=== PATIENT | male | born 1950 | race Caucasian/White ===

== ENCOUNTER 2021-10-08 18:22 | Inpatient (IN) | payer MEDICARE ==
[~2021-10-08] VITALS: Ht 182.9 cm; Wt 79.5 kg
[~2021-10-08 18:22] MED LIST: ACET-73 PO; CHOL10005 PO; FERR325T6 PO; HYDR10SY16 PO; IPRA4AER IH; LISI40TA13 PO; OMEP40CA21 PO; SIMV-49 PO; VITA1TAB20 PO
[2021-10-08] MEDS ORDERED: methylPREDNISolone SOD SUCC 125 MG/2 ML VIAL IV ONE (18:45)
[2021-10-08] MEDS ORDERED: ALBUTEROL SULFATE 2.5 MG/3 ML NEBU NEB ONE (18:45)
[2021-10-08] MEDS ORDERED: ACETAMINOPHEN ES 500 MG TABLET PO ONE (18:45)
[2021-10-08] MEDS ORDERED: IPRATROPIUM BROMIDE 0.5 MG/2.5 ML NEBU NEB ONE (18:45)
[2021-10-08] MEDS ORDERED: CEFTRIAXONE 1 G in IV DEXTROSE 5% 50 ML IV ONE (18:45)
[2021-10-08] MEDS ORDERED: TIOT18CA3 INH (18:55)
[2021-10-08] MEDS ORDERED: GABA600T12 PO (18:55)
[2021-10-08] MEDS ORDERED: AMLO10TA59 PO (18:55)
[2021-10-08] MEDS ORDERED: ATOR40TA PO (18:55)
[2021-10-08] MEDS ORDERED: FLUP25VI4 IJ (18:55)
[2021-10-08] MEDS ORDERED: OLAN15TA3 PO (18:55)
[2021-10-08] MEDS ORDERED: BENZ1TAB7 PO (18:55)
[2021-10-08] MEDS ORDERED: OMEP20CA15 PO (18:55)
[2021-10-08] MEDS ORDERED: FLUT1BLS4 IH (18:55)
[2021-10-08] MEDS ORDERED: MONT10TA22 PO (18:55)
[2021-10-08] MEDS ORDERED: CHOLECALCIFEROL PO (18:55)
[2021-10-08] MEDS ORDERED: METF-440 PO (18:55)
[2021-10-08] MEDS ORDERED: ALBU18HF2 INH (18:55)
[2021-10-08] MEDS ORDERED: DOCU250C14 PO (18:55)
[2021-10-08] MEDS ORDERED: TAMS-3 PO (18:55)
[2021-10-08] MEDS ORDERED: ACETAMINOPHEN ES 500 MG TABLET ONE (18:59)
[2021-10-08] MEDS ORDERED: methylPREDNISolone SOD SUCC 125 MG/2 ML VIAL ONE (18:59)
[2021-10-08 19:01] LABS: ABG BASE EXCESS 1.1 mmol/L; ABG HCO3 25.3 mmol/L; ABG PCO2 38.8 mmHg (35.0-45.0); ABG PH 7.432 (7.350-7.450); ABG PO2 82.2 mmHg (75.0-100.0); ABG SITE LEFT BRACHIAL; ABG TOTAL HEMOGLOBIN 14.3 G/dL (13.5-18.0); COHb 4.2 % (0.5-1.5); MetHb 0.2 % (0.0-1.5); O2Hb 92.5 % (94.0-97.0); VENT MODE Nasal Cannula
[2021-10-08] MEDS ORDERED: ALBUTEROL SULFATE 2.5 MG/3 ML NEBU ONE (19:14)
[2021-10-08] MEDS ORDERED: IPRATROPIUM BROMIDE 0.5 MG/2.5 ML NEBU ONE (19:15)
[2021-10-08 19:23] LABS: MEAN CORPUSCULAR VOLUME 87.5 fL (73.0-96.2); PLATELET COUNT (AUTO) 255 K/uL (152-348)
[2021-10-08] MEDS ORDERED: levoFLOXacin 750 MG/D5W 150 ML PIGGYBACK IV ONE (19:30)
--- NOTE | 2021-10-08 19:32 | NUR ---
pt a/o denies pain or sob. covid and rapid step performed. pt with breathing treatment in progress.
[2021-10-08 19:39] LABS: CREATININE 0.9 mg/dL (0.6-1.3); POTASSIUM 3.5 mmol/L (3.5-5.1)
[2021-10-08 19:44] LABS: BILIRUBIN,DIRECT 0.3 mg/dL (0.0-0.2); BILIRUBIN,TOTAL 0.9 mg/dL (0.2-1.0); TOTAL PROTEIN, SERUM 7.4 g/dL (6.4-8.2)
[2021-10-08] MEDS ORDERED: IV NORMAL SALINE 1000 ML BAG IV ONE (19:45)
[2021-10-08] MEDS ORDERED: levoFLOXacin 750MG/D5W 150 ML IV ONE (19:54)
[2021-10-08] MEDS ORDERED: CEFTRIAXONE /D5W 50ML IVPB **ER PYXIS IV ONE (19:54)
--- NOTE | 2021-10-08 20:24 | NUR ---
call to [facility] consultant.
--- NOTE | 2021-10-08 20:27 | NUR ---
Dr. Arellano to call back [facility] steam pan sponger doctor.
[2021-10-08] MEDS ORDERED: IPRATROPIUM BROMIDE 0.5 MG/2.5 ML NEBU NEB PRN (21:00)
[2021-10-08] MEDS ORDERED: Z GUARD REMEDY PASTE 57 GM TUBE TOP PRN (21:00)
[2021-10-08] MEDS ORDERED: ALBUTEROL SULFATE 2.5 MG/3 ML NEBU NEB PRN (21:00)
[2021-10-08] MEDS ORDERED: MAGNESIUM HYDROXIDE 30 ML LIQUID UDC PO PRN (21:00)
[2021-10-08] MEDS ORDERED: ONDANSETRON 4 MG/2 ML VIAL IV PRN (21:00)
[2021-10-08] MEDS: ENOXAPARIN SODIUM 40 MG/0.4 ML DISP.SYRIN SQ SCH (21:00)
[2021-10-08] MEDS ORDERED: DEXTROSE 50% 50 ML DISP.SYRIN IV PRN (21:15)
--- NOTE | 2021-10-08 21:55 | NUR ---
called report to Mayra KRUEGER
--- NOTE | 2021-10-08 22:24 | NUR ---
pt transferred to room 304 via [facility] with all belongings. Mayra KRUEGER in room to accept pt.
--- NOTE | 2021-10-08 22:25 | NUR ---
Received pt from er via [facility]. Under the care of Dr. Espinosa .Dx: Sepsis. Pt in no acute distress. Pt on 3l nasal cannula. Belonging list done. intermediate assessment done.Pt observed to have sacral redness. Pt refused to answer most of of the questions on admission. Admission process and care plan initiated. Safety and comfort provided. Will continue to monitor.
[2021-10-08 22:42] VITALS: BP 113/69
[2021-10-09] MEDS: IV NS 1000 ML 1,000 ML IV PRN ×2 (00:19→15:48)
[2021-10-09 04:30] VITALS: BP 123/77
[2021-10-09 05:09] LABS: *BILIRUBIN,URIN NEGATIVE (NEGATIVE); *COLOR,URINE YELLOW (YELLOW); *KETONES,URINE NEGATIVE (NEGATIVE); LEUKOCYTE ESTERASE ,URINE 2+ (NEGATIVE); NITRITE, URINE NEGATIVE (NEGATIVE); UGLUCOSE NEGATIVE (NEGATIVE)
[2021-10-09 05:13] LABS: *BLOOD, URINE TRACE (NEGATIVE)
[2021-10-09 05:14] LABS: *CLARITY,URINE HAZY (CLEAR)
[2021-10-09 05:17] LABS: BACTERIA,URINE FEW /HPF (NONE SEEN); SQUAMOUS EPITHELIAL CELL,UR MODERATE /HPF (NONE SEEN); WBC,URINE 20-50 /HPF (0-3)
--- NOTE | 2021-10-09 05:58 | NUR ---
Pt slept comfortably. Pt in sinus rhythm. Pt in no acute distress. Pt refused his Lovenox medication. Pt vital signs within normal limit. Pt on 3l nasal cannula.All needs are met.Safety and comfort provided. Will endorse to incoming nurse for continuity of care.
[2021-10-09] MEDS: methylPREDNISolone SOD SUCC 40 MG/ML VIAL IV SCH ×3 (06:09→21:47)
[2021-10-09] MEDS: PANTOPRAZOLE SODIUM 40 MG TABLET.DR PO SCH (06:09)
[2021-10-09 06:29] LABS: HEMATOCRIT 38.5 % (36.7-47.1); MEAN CORPUSCULAR HEMOGLOBIN 29.9 uug (23.8-33.4); MEAN CORPUSCULAR VOLUME 87.9 fL (73.0-96.2); PLATELET COUNT (AUTO) 253 K/uL (152-348)
[2021-10-09] MEDS: BLOOD SUGAR DIAGNOSTIC 1 EACH STRIP VI SCH ×4 (06:43→20:12)
[2021-10-09 07:00] LABS: BILIRUBIN,TOTAL 0.5 mg/dL (0.2-1.0); CREATININE 0.6 mg/dL (0.6-1.3); MAGNESIUM 2.3 mg/dL (1.8-2.4); POTASSIUM 4.1 mmol/L (3.5-5.1); TOTAL PROTEIN, SERUM 6.3 g/dL (6.4-8.2)
--- NOTE | 2021-10-09 08:02 | NUR ---
Received Pt resting in bed, awake alert oriented x4 on tele sinus rhythm. Pt in no acute distress with episodes of cough on and off. Pt vital signs within normal limit, on 3 L 02 via nasal cannula. LAC#18G intact.All needs are met.Safety and comfort provided. Will continue to monitor closely.
[2021-10-09] MEDS: INSULIN REGULAR, HUMAN 300 UNIT/3 ML VIAL SQ PRN ×4 (08:13→21:34)
[2021-10-09] MEDS: NICOTINE 14 MG/24HR PATCH TD SCH (08:14)
[2021-10-09] MEDS: MONTELUKAST SODIUM 10 MG TABLET PO SCH (08:14)
[2021-10-09] MEDS: DOCUSATE SODIUM 250 MG CAPSULE PO SCH ×2 (08:14→16:58)
[2021-10-09] MEDS ORDERED: TAMSULOSIN HCL 0.4 MG CAP.SR.24H PO SCH (09:00)
[2021-10-09 11:45] VITALS: BP 120/74
[2021-10-09] MEDS: IPRATROPIUM BROMIDE 0.5 MG/2.5 ML NEBU NEB SCH ×2 (13:21→20:54)
[2021-10-09] MEDS: ALBUTEROL SULFATE 2.5 MG/3 ML NEBU NEB SCH ×2 (13:21→20:54)
[2021-10-09] MEDS: ACETAMINOPHEN 325 MG TABLET PO PRN (14:00)
[2021-10-09 16:00] VITALS: BP 113/68
[2021-10-09] MEDS: GLUCERNA SHAKE 237 ML CAN PO SCH (17:01)
[2021-10-09] MEDS: ATORVASTATIN 40 MG TABLET PO SCH (17:30)
[2021-10-09 20:00] VITALS: BP 108/75
[2021-10-09] MEDS ORDERED: levoFLOXacin 750MG/D5W 750 MG in PREMIXED 1 EACH IV SCH (20:00)
[2021-10-09] MEDS: CEFTRIAXONE 1 G in IV DEXTROSE 5% 50 ML IV SCH (20:02)
[2021-10-09] MEDS: ENOXAPARIN SODIUM 40 MG/0.4 ML DISP.SYRIN SQ SCH (20:09)
[2021-10-10] VITALS: BP 110/70
[2021-10-10 04:00] VITALS: BP 122/83
[2021-10-10] MEDS: PANTOPRAZOLE SODIUM 40 MG TABLET.DR PO SCH (06:09)
[2021-10-10] MEDS: methylPREDNISolone SOD SUCC 40 MG/ML VIAL IV SCH ×2 (06:09→20:05)
[2021-10-10] MEDS: BLOOD SUGAR DIAGNOSTIC 1 EACH STRIP VI SCH ×4 (06:10→20:20)
[2021-10-10 06:52] LABS: HEMATOCRIT 35.8 % (36.7-47.1); MEAN CORPUSCULAR HEMOGLOBIN 30.1 uug (23.8-33.4); MEAN CORPUSCULAR VOLUME 88.7 fL (73.0-96.2); PLATELET COUNT (AUTO) 275 K/uL (152-348)
[2021-10-10 07:02] LABS: CREATININE 0.6 mg/dL (0.6-1.3); MAGNESIUM 2.3 mg/dL (1.8-2.4); PHOSPHOROUS 1.8 mg/dL (2.5-4.9); POTASSIUM 4.5 mmol/L (3.5-5.1)
--- NOTE | 2021-10-10 07:21 | NUR ---
Pt rested well in between care; no acute distress; repositioned for comfort; assisted with needs, incontince care done safety maintained; continue to monitor; continue plan of care
[2021-10-10] MEDS: IPRATROPIUM BROMIDE 0.5 MG/2.5 ML NEBU NEB SCH ×3 (07:49→19:09)
[2021-10-10] MEDS: ALBUTEROL SULFATE 2.5 MG/3 ML NEBU NEB SCH ×3 (07:49→19:09)
[2021-10-10] MEDS: INSULIN REGULAR, HUMAN 300 UNIT/3 ML VIAL SQ PRN ×2 (07:58→11:26)
--- NOTE | 2021-10-10 08:00 | NUR ---
AWAKE ALERT AND VERBALLY RESPONSIVE, ABLE TO MAKE NEEDS KNOWN. CONTINUE WITH HHN TX FOR SOB, O2 AT 2L NC SATURATING 95%. ON AND OFF DRY TO PRODUCTIVE COUGH. SR ON MONITOR
[2021-10-10] MEDS: MONTELUKAST SODIUM 10 MG TABLET PO SCH (08:04)
[2021-10-10] MEDS: DOCUSATE SODIUM 250 MG CAPSULE PO SCH ×2 (08:04→17:28)
[2021-10-10] MEDS: NICOTINE 14 MG/24HR PATCH TD SCH (08:04)
[2021-10-10] MEDS: ACETAMINOPHEN 325 MG TABLET PO PRN (08:04)
[2021-10-10] MEDS: GLUCERNA SHAKE 237 ML CAN PO SCH ×2 (08:05→17:30)
[2021-10-10] MEDS: MORPHINE SULFATE 2 MG/1 ML DISP.SYRIN IV PRN ×2 (10:09→20:10)
[2021-10-10 12:00] VITALS: BP 138/70
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
[2021-10-10] MEDS: APIXABAN 5 MG TABLET PO SCH ×2 (12:59→20:19)
[2021-10-10 16:00] VITALS: BP 135/72
[2021-10-10] MEDS ORDERED: NEUTRA PHOS PACKET PO ONE (16:45)
--- NOTE | 2021-10-10 16:56 | NUR ---
CONTINUE TELE OBSERVATION REMAINS SR ON MONITOR, AFEBRILE
[2021-10-10] MEDS: ATORVASTATIN 40 MG TABLET PO SCH (17:28)
[2021-10-10] MEDS: TAMSULOSIN HCL 0.4 MG CAP.SR.24H PO SCH (20:03)
[2021-10-10] MEDS: levoFLOXacin 500 MG TABLET PO SCH (20:03)
[2021-10-10] MEDS: CEFTRIAXONE 1 G in IV DEXTROSE 5% 50 ML IV SCH (20:05)
[2021-10-10 20:46] VITALS: BP 140/87
[2021-10-11 00:32] VITALS: BP 128/69
[2021-10-11 04:30] VITALS: BP 146/97
[2021-10-11] MEDS: PANTOPRAZOLE SODIUM 40 MG TABLET.DR PO SCH (06:35)
[2021-10-11] MEDS: BLOOD SUGAR DIAGNOSTIC 1 EACH STRIP VI SCH ×4 (06:42→20:37)
[2021-10-11] MEDS: MORPHINE SULFATE 2 MG/1 ML DISP.SYRIN IV PRN ×2 (07:04→11:47)
[2021-10-11 07:46] LABS: HEMATOCRIT 38.4 % (36.7-47.1); MEAN CORPUSCULAR HEMOGLOBIN 29.9 uug (23.8-33.4); MEAN CORPUSCULAR VOLUME 87.7 fL (73.0-96.2); PLATELET COUNT (AUTO) 311 K/uL (152-348)
--- NOTE | 2021-10-11 07:47 | NUR ---
Slept intermittently. Able to make needs known. IV site intact. No distress noted. Will endorse to day shift.
[2021-10-11] MEDS: ALBUTEROL SULFATE 2.5 MG/3 ML NEBU NEB SCH ×3 (07:59→19:39)
[2021-10-11] MEDS: IPRATROPIUM BROMIDE 0.5 MG/2.5 ML NEBU NEB SCH ×3 (07:59→19:39)
[2021-10-11 08:00] LABS: CREATININE 0.6 mg/dL (0.6-1.3); MAGNESIUM 2.2 mg/dL (1.8-2.4); PHOSPHOROUS 2.5 mg/dL (2.5-4.9); POTASSIUM 4.1 mmol/L (3.5-5.1)
--- NOTE | 2021-10-11 08:00 | NUR ---
AWAKE ALERT AND VERBALLY RESPONSIVE WITH PERIODS OF DISORIENTATION 'I NEED TO TO GET SOME MONEY SO I CAN PAY THE STAFF' REALITY ORIENTATION DONE. CONTINUE WITH O2 2-3L NC SATURATING 95%. REMAINS AFIB ON MONITOR
[2021-10-11] MEDS: ACETAMINOPHEN 325 MG TABLET PO PRN (08:59)
[2021-10-11] MEDS: methylPREDNISolone SOD SUCC 40 MG/ML VIAL IV SCH ×2 (08:59→20:17)
[2021-10-11] MEDS: NICOTINE 14 MG/24HR PATCH TD SCH (08:59)
[2021-10-11] MEDS: MONTELUKAST SODIUM 10 MG TABLET PO SCH (08:59)
[2021-10-11] MEDS: DOCUSATE SODIUM 250 MG CAPSULE PO SCH ×2 (08:59→16:54)
[2021-10-11] MEDS: APIXABAN 5 MG TABLET PO SCH ×2 (09:01→20:05)
[2021-10-11] MEDS: GLUCERNA SHAKE 237 ML CAN PO SCH ×2 (09:01→16:55)
--- NOTE | 2021-10-11 12:30 | NUR ---
MEDICATED X1 WITH MORPHINE FOR GENERALIZED PAIN WITH GOOD EFFECT. CONTROLLED AFIB ON MONITOR
[2021-10-11 12:41] VITALS: BP 139/91
--- NOTE | 2021-10-11 13:46 | NUR ---
RESTING COMFORTABLY IN BED SEEN BY DR TANNER AND CHANGE STATUS TO MED/SURG
[2021-10-11 16:06] VITALS: BP 137/83
[2021-10-11] MEDS: ATORVASTATIN 40 MG TABLET PO SCH (16:54)
[2021-10-11] MEDS: levoFLOXacin 500 MG TABLET PO SCH (20:04)
[2021-10-11] MEDS: TAMSULOSIN HCL 0.4 MG CAP.SR.24H PO SCH (20:04)
[2021-10-11] MEDS: CEFTRIAXONE 1 G in IV DEXTROSE 5% 50 ML IV SCH (20:17)
[2021-10-11 20:36] VITALS: BP 132/76
[2021-10-12 03:51] VITALS: BP 137/102
[2021-10-12] MEDS: PANTOPRAZOLE SODIUM 40 MG TABLET.DR PO SCH (06:14)
[2021-10-12] MEDS: BLOOD SUGAR DIAGNOSTIC 1 EACH STRIP VI SCH ×4 (06:28→22:26)
[2021-10-12 06:45] LABS: HEMATOCRIT 45.7 % (36.7-47.1); MEAN CORPUSCULAR HEMOGLOBIN 29.9 uug (23.8-33.4); MEAN CORPUSCULAR VOLUME 88.3 fL (73.0-96.2); PLATELET COUNT (AUTO) 356 K/uL (152-348)
[2021-10-12 07:05] LABS: BILIRUBIN,TOTAL 0.4 mg/dL (0.2-1.0); CREATININE 0.7 mg/dL (0.6-1.3); MAGNESIUM 2.5 mg/dL (1.8-2.4); PHOSPHOROUS 3.4 mg/dL (2.5-4.9); POTASSIUM 3.9 mmol/L (3.5-5.1); TOTAL PROTEIN, SERUM 7.6 g/dL (6.4-8.2)
--- NOTE | 2021-10-12 08:02 | NUR ---
Resting comfortably in bed no sob noted. No s/sx of pain. Breathing even and non labored. Will cont to monitor.
[2021-10-12] MEDS: ALBUTEROL SULFATE 2.5 MG/3 ML NEBU NEB SCH ×3 (08:18→19:08)
[2021-10-12] MEDS: IPRATROPIUM BROMIDE 0.5 MG/2.5 ML NEBU NEB SCH ×3 (08:18→19:08)
[2021-10-12] MEDS: methylPREDNISolone SOD SUCC 40 MG/ML VIAL IV SCH (08:30)
[2021-10-12] MEDS: APIXABAN 5 MG TABLET PO SCH ×2 (08:30→22:30)
[2021-10-12] MEDS: GLUCERNA SHAKE 237 ML CAN PO SCH ×2 (08:31→17:03)
[2021-10-12] MEDS: MONTELUKAST SODIUM 10 MG TABLET PO SCH (08:31)
[2021-10-12] MEDS: DOCUSATE SODIUM 250 MG CAPSULE PO SCH ×2 (08:31→17:03)
[2021-10-12] MEDS: NICOTINE 14 MG/24HR PATCH TD SCH (08:31)
[2021-10-12] MEDS: MORPHINE SULFATE 2 MG/1 ML DISP.SYRIN IV PRN (08:32)
[2021-10-12 12:00] VITALS: BP 141/92
--- NOTE | 2021-10-12 13:00 | NUR ---
Resting. No significant change in condition in morning assessment. Needs attended. Cont to monitor
[2021-10-12 16:00] VITALS: BP 119/72
[2021-10-12] MEDS: INSULIN REGULAR, HUMAN 300 UNIT/3 ML VIAL SQ PRN (17:02)
[2021-10-12] MEDS: ATORVASTATIN 40 MG TABLET PO SCH (17:03)
--- NOTE | 2021-10-12 18:17 | NUR ---
Pt in bed resting easily arousable. No acute distress. Remains on 3 Lpm no s/sx of sob or pain noted. Needs attended safety precautions kept. Cont to monitor.
[2021-10-12 20:17] VITALS: BP 96/47
[2021-10-12] MEDS: CEFTRIAXONE 1 G in IV DEXTROSE 5% 50 ML IV SCH (22:02)
[2021-10-12] MEDS: TAMSULOSIN HCL 0.4 MG CAP.SR.24H PO SCH (22:28)
[2021-10-12] MEDS: levoFLOXacin 500 MG TABLET PO SCH (22:51)
[2021-10-13] MEDS: methylPREDNISolone SOD SUCC 40 MG/ML VIAL IV SCH ×2 (00:21→09:06)
[2021-10-13 04:40] VITALS: BP 118/94
--- NOTE | 2021-10-13 05:15 | NUR ---
RECEIVED LYING IN BED. FORGETFUL AT TIMES. IV REMAINS PATENT. iS RECEIVING 02 AT 3LPM VIA NASAL CANNULA. DENIES SHORTNESS OF BREATH, OR ANY DISTRESS. C/L REMAINS IN REACH. BED ALARM ON, FOR SAFETY. NO DISTRESS NOTED.
[2021-10-13] MEDS: PANTOPRAZOLE SODIUM 40 MG TABLET.DR PO SCH (06:28)
[2021-10-13] MEDS: BLOOD SUGAR DIAGNOSTIC 1 EACH STRIP VI SCH ×2 (06:28→11:20)
[2021-10-13] MEDS: ALBUTEROL SULFATE 2.5 MG/3 ML NEBU NEB SCH ×3 (07:19→19:25)
[2021-10-13] MEDS: IPRATROPIUM BROMIDE 0.5 MG/2.5 ML NEBU NEB SCH ×3 (07:19→19:25)
[2021-10-13 07:49] LABS: HEMATOCRIT 48.1 % (36.7-47.1); MEAN CORPUSCULAR HEMOGLOBIN 30.3 uug (23.8-33.4); MEAN CORPUSCULAR VOLUME 87.9 fL (73.0-96.2); PLATELET COUNT (AUTO) 369 K/uL (152-348)
[2021-10-13 08:09] LABS: MAGNESIUM 2.6 mg/dL (1.8-2.4)
[2021-10-13] MEDS: DOCUSATE SODIUM 250 MG CAPSULE PO SCH (09:04)
[2021-10-13] MEDS: MONTELUKAST SODIUM 10 MG TABLET PO SCH (09:04)
[2021-10-13] MEDS: NICOTINE 14 MG/24HR PATCH TD SCH (09:04)
[2021-10-13] MEDS: GLUCERNA SHAKE 237 ML CAN PO SCH (09:06)
[2021-10-13] MEDS: APIXABAN 5 MG TABLET PO SCH (09:06)
[2021-10-13 11:37] VITALS: BP 154/95
[2021-10-13] MEDS ORDERED: LEVO500T90 PO (14:15)
[2021-10-13] MEDS ORDERED: APIX5TAB4 PO (14:15)
[2021-10-13] MEDS ORDERED: METH4TAB21 PO (14:15)
[2021-10-13 16:04] VITALS: BP 98/69
--- NOTE | 2021-10-13 17:25 | NUR ---
TRANSPORTED TO [facility] VIA [facility]. VSS. IV REMOVED INTACT. REPORT GIVEN TO DMITRIY. LEFT BEFORE DINNER DMITRIY SAYS SHE WILL FEED HIM WHEN HE GETS THERE
[2021-10-13] MEDS ORDERED: methylPREDNISolone SOD SUCC 40 MG/ML VIAL IV SCH (21:00)
== END 2021-10-13 17:10 | disposition home health service (06) | DRG 871 ==
LOC: ER 18:24 → TELE3 21:59 → MEDSURG3 10-11 12:48
PROVIDERS: ADMIT Hospitalist; ATTEND Hospitalist
DX: A41.9 Sepsis, unspecified organism (principal); J18.9 Pneumonia, unspecified organism; J96.01 Acute respiratory failure with hypoxia; E44.0 Moderate protein-calorie malnutrition; E87.1 Hypo-osmolality and hyponatremia; J44.1 Chronic obstructive pulmonary disease with (acute) exacerbation; J98.11 Atelectasis; J44.0 Chronic obstructive pulmonary disease with (acute) lower respiratory infection; N39.0 Urinary tract infection, site not specified; E11.9 Type 2 diabetes mellitus without complications; E78.5 Hyperlipidemia, unspecified; E83.39 Other disorders of phosphorus metabolism; F31.9 Bipolar disorder, unspecified; F41.9 Anxiety disorder, unspecified; I10 Essential (primary) hypertension; I48.91 Unspecified atrial fibrillation; Z20.822 Contact with and (suspected) exposure to COVID-19; N40.0 Benign prostatic hyperplasia without lower urinary tract symptoms; Z99.81 Dependence on supplemental oxygen; F17.210 Nicotine dependence, cigarettes, uncomplicated; E88.09 Other disorders of plasma-protein metabolism, not elsewhere classified; R25.1 Tremor, unspecified; Z68.23 Body mass index [BMI] 23.0-23.9, adult; Z79.84 Long term (current) use of oral hypoglycemic drugs
CPT/HCPCS: 36415; 36600; 70030-TC; 71045; 83605; 83735; 84100; 85025; 85730; 87040; 87086; 87400; 93005; 93307; 94640; 97161; A4663; A6209; A9150; G0378; J0696; J1650; J1815; J1956; J2270; J2405; J2920; J2930; J3590; J7030; J7040; J7060

== ENCOUNTER 2022-07-11 10:33 | Emergency (ER) | payer MEDICARE ==
[~2022-07-11] VITALS: Ht 182.9 cm; Wt 81.6 kg
[~2022-07-11 10:33] MED LIST changes: +ALBU18HF2 INH; +AMLO10TA59 PO; +APIX5TAB4 PO; +ATOR40TA PO; +BENZ1TAB7 PO; -CHOL10005 PO; +CHOLECALCIFEROL PO; +DOCU250C14 PO; -FERR325T6 PO; +FLUP25VI4 IJ; +FLUT1BLS4 IH; +GABA600T12 PO; -HYDR10SY16 PO; -IPRA4AER IH; +LEVO500T90 PO; -LISI40TA13 PO; +METF-440 PO; +METH4TAB21 PO; +MONT10TA22 PO; +OLAN15TA3 PO; +OMEP20CA15 PO; -OMEP40CA21 PO; -SIMV-49 PO; +TAMS-3 PO; +TIOT18CA3 INH; -VITA1TAB20 PO
[2022-07-11] MEDS ORDERED: ACETAMINOPHEN ES 500 MG TABLET PO ONE (10:45)
[2022-07-11] MEDS ORDERED: IV NORMAL SALINE 1000 ML BAG IV ONE (10:45)
[2022-07-11 11:03] LABS: HEMATOCRIT 38.7 % (36.7-47.1); MEAN CORPUSCULAR VOLUME 86.9 fL (73.0-96.2); PLATELET COUNT (AUTO) 309 K/uL (152-348)
[2022-07-11 11:15] LABS: BILIRUBIN,DIRECT 0.1 mg/dL (0.0-0.2); BILIRUBIN,TOTAL 0.4 mg/dL (0.2-1.0); CREATININE 0.7 mg/dL (0.6-1.3); POTASSIUM 4.6 mmol/L (3.5-5.1); TOTAL PROTEIN, SERUM 6.2 g/dL (6.4-8.2)
[2022-07-11] MEDS ORDERED: ACETAMINOPHEN ES 500 MG TABLET ONE (11:34)
--- NOTE | 2022-07-11 12:00 | NUR ---
PATIENT ON SEMI MERCADO'S POSITION. PLACED ON CONTINUOUS MONITORING. 20G IV TO RIGHT FOREARM PLACED AND PATENT. PATIENT ED COURSE IN PLACE.
[2022-07-11] MEDS ORDERED: PROCHLORPERAZINE EDISYLATE 10 MG/2 ML VIAL ONE (12:28)
[2022-07-11] MEDS ORDERED: PROCHLORPERAZINE EDISYLATE 10 MG/2 ML VIAL IV ONE (12:30)
== END 2022-07-11 13:25 | disposition home or self-care (01) ==
LOC: ER 10:37
DX: R51.9 Headache, unspecified (principal); H40.9 Unspecified glaucoma; Z98.890 Other specified postprocedural states; J44.9 Chronic obstructive pulmonary disease, unspecified; Z99.81 Dependence on supplemental oxygen; I10 Essential (primary) hypertension; E78.5 Hyperlipidemia, unspecified; Z79.899 Other long term (current) drug therapy; Z87.891 Personal history of nicotine dependence; Z88.8 Allergy status to other drugs, medicaments and biological substances
CPT/HCPCS: 99284; 96374; 96361; 80076; 80048; 85025; 36415; 93005; J0780; J7040; A4663; A9150